=== PATIENT | female | born 1990 | race Caucasian/White ===

== ENCOUNTER → 2016-06-22 | Outpatient (CLI) | payer OTHER ==
[~2016-06-22] MED LIST: BIRTH CONTROL; CIPRO 500MG TA500 MG; CIPRO500 MG PO; CLONAZEPAM0.5 M1 PO; CYCLOBENZAPRINE10 M1 PO; DOXYCYCLINE 50M50 MG PO; IMPLANON68 MG ID; INTUNIV3 MG PO; LAMICTAL200 MG PO; MACRODANTIN100; NORCO 325 MG-51 TAB PO; PYRIDIUM 100MG100 MG PO; ZOFRAN 4MG T4 MG/TAB PO
== END ==
LOC: BHSO 09:06
DX: F41.1 Generalized anxiety disorder (principal)

== ENCOUNTER → 2016-06-29 | Outpatient (CLI) | payer OTHER | LOC: BHSO 09:02 | DX: F41.1 Generalized anxiety disorder (principal) ==

== ENCOUNTER → 2016-07-13 | Outpatient (CLI) | payer OTHER | LOC: BHSO 09:05 | DX: F43.10 Post-traumatic stress disorder, unspecified (principal) ==

== ENCOUNTER → 2016-07-20 | Outpatient (CLI) | payer OTHER | LOC: BHSO 10:02 | DX: F41.1 Generalized anxiety disorder (principal) ==

== ENCOUNTER 2018-01-16 23:58 | Emergency (ER) | payer OTHER ==
[~2018-01-16] VITALS: Ht 172.7 cm; Wt 95.5 kg
[2018-01-17 00:03] VITALS: TEMP 97.6
[2018-01-17 00:39] LABS: BASO # 0.1 (0.0-0.2); BASO % 0.5 % (0.0-2.0); EOS # 0.1 (0.0-0.7); EOS % 1.1 % (0-4.0); GRAN # 6.9 (1.4-6.5); GRAN % 59.7 % (42.2-75.2); HEMATOCRIT 40.1 % (37.0-47.0); HEMOGLOBIN 12.9 g/dl (12.5-16.0); LYMPH # 3.7 (1.2-3.4); LYMPH % 32.1 % (20.0-51.0); MEAN CELL VOLUME 85 fl (80.0-100.0); MEAN CORPUSCULAR HEMOGLOBIN 27 pg (27.0-31.0); MEAN CORPUSCULAR HGB CONC 32 g/dl (33.0-37.0); MEAN PLATELET VOLUME 10.5 fl (7.4-10.4); MONO # 0.7 (0.1-0.6); MONO % 6.3 % (1.7-9.3); PLATELET COUNT 311 K/mm3 (130-400); REDCELL DISTRIBUTION WIDTH-CV 13.5 % (11.5-14.5)
[2018-01-17 00:39] LABS: TRICYCLIC ANTIDEPRESS URINE NEGATIVE
[2018-01-17 00:50] LABS: ACETAMINOPHEN < 10 ug/mL (10-30); ALANINE AMINOTRANSFERASE 41 U/L (9-52); ALBUMIN 4.4 gm/dL (3.5-5.0); ALCOHOL(ethanol),MEDICAL < 10 mg/dL; ALKALINE PHOSPHATASE 76 U/L (50-136); ANION GAP 12 mmol/L (7-16); AST,SGOT 20 U/L (15-37); BILIRUBIN,TOTAL 0.2 mg/dL (0.0-1.0); BLOOD UREA NITROGEN 13 mg/dL (7-17); CALCIUM 9.5 mg/dL (8.4-10.2); CARBON DIOXIDE 27 mmol/L (22-30); CHLORIDE 99 mmol/L (98-107); CREATININE, serum 0.67 mg/dL (0.52-1.25); GLUCOSE 97 mg/dL (74-106); POTASSIUM 4.1 mmol/L (3.4-5.0); SALICYLATE < 1.0 mg/dL; SODIUM 138 mmol/L (137-145); TOTAL PROTEIN 7.9 gm/dL (6.4-8.2)
[2018-01-17 05:42] VITALS: BP 138/99; PULSE 91
== END 2018-01-17 05:42 | disposition home or self-care (01) ==
LOC: COL.ER 23:58
PROVIDERS: Emergency Medicine
DX: F32.9 Major depressive disorder, single episode, unspecified (principal); R45.851 Suicidal ideations; F12.90 Cannabis use, unspecified, uncomplicated

== ENCOUNTER 2018-10-06 10:25 | Emergency (ER) | payer OTHER ==
[~2018-10-06] VITALS: Ht 172.7 cm; Wt 113.6 kg
[2018-10-06 10:32] VITALS: TEMP 98.4
[2018-10-06] MEDS ORDERED: AMBIEN 5MG TABLE5 MG PO (10:51)
[2018-10-06 11:17] LABS: BASO # 0.1 (0.0-0.2); BASO % 0.5 % (0.0-2.0); EOS # 0.1 (0.0-0.7); EOS % 0.6 % (0-4.0); GRAN % 66.8 % (42.2-75.2); HEMATOCRIT 42.4 % (37.0-47.0); HEMOGLOBIN 13.8 g/dl (12.5-16.0); LYMPH # 2.7 (1.2-3.4); LYMPH % 25.5 % (20.0-51.0); MEAN CELL VOLUME 85 fl (80.0-100.0); MEAN CORPUSCULAR HEMOGLOBIN 28 pg (27.0-31.0); MEAN CORPUSCULAR HGB CONC 33 g/dl (33.0-37.0); MEAN PLATELET VOLUME 10.4 fl (7.4-10.4); MONO # 0.7 (0.1-0.6); MONO % 6.3 % (1.7-9.3); PLATELET COUNT 318 K/mm3 (130-400); RED BLOOD COUNT 4.99 M/mm3 (4.10-5.30); REDCELL DISTRIBUTION WIDTH-CV 12.8 % (11.5-14.5)
[2018-10-06 11:31] LABS: ALBUMIN 4.8 gm/dL (3.5-5.0); BILIRUBIN,TOTAL 0.6 mg/dL (0.0-1.0); C-REACTIVE PROTEIN 0.7 mg/dL (0.0-0.9); CALCIUM 10.2 mg/dL (8.4-10.2); CREATININE, serum 0.64 (0.52-1.25); TOTAL PROTEIN 8.6 gm/dL (6.4-8.2)
[2018-10-06 11:45] LABS: PROLACTIN 22.7 ng/mL (3.0-18.6)
[2018-10-06 16:46] VITALS: BP 123/81; PULSE 97
== END 2018-10-06 16:48 | disposition home or self-care (01) ==
LOC: COL.ER 10:25
PROVIDERS: Physician Assistant
DX: R47.01 Aphasia (principal); F41.9 Anxiety disorder, unspecified; F32.9 Major depressive disorder, single episode, unspecified
CPT/HCPCS: A9585; J2060

== ENCOUNTER → 2019-05-23 | Outpatient (CLI) | payer OTHER ==
[~2019-05-23] MED LIST changes: +AMBIEN 5MG TABLE5 MG PO
== END ==
LOC: COL.CARD 05-16 14:00
DX: R00.0 Tachycardia, unspecified (principal)

== ENCOUNTER → 2019-06-25 | Outpatient (CLI) | payer OTHER | LOC: COL.RAD 12:32 | DX: R10.11 Right upper quadrant pain (principal) | CPT/HCPCS: Q9967 ==

== ENCOUNTER 2019-07-22 00:03 | Emergency (ER) | payer OTHER ==
[~2019-07-22] VITALS: Ht 172.7 cm; Wt 104.5 kg
[2019-07-22 02:41] LABS: BASO # 0.1 (0.0-0.2); BASO % 0.5 % (0.0-2.0); EOS # 0.2 (0.0-0.7); EOS % 1.5 % (0-4.0); GRAN # 6.7 (1.4-6.5); GRAN % 60.8 % (42.2-75.2); HEMATOCRIT 44.2 % (37.0-47.0); HEMOGLOBIN 14.1 g/dl (12.5-16.0); LYMPH # 3.2 (1.2-3.4); LYMPH % 29.1 % (20.0-51.0); MEAN CELL VOLUME 83 fl (80.0-100.0); MEAN CORPUSCULAR HEMOGLOBIN 27 pg (27.0-31.0); MEAN CORPUSCULAR HGB CONC 32 g/dl (33.0-37.0); MEAN PLATELET VOLUME 10.6 fl (7.4-10.4); MONO # 0.9 (0.1-0.6); MONO % 7.7 % (1.7-9.3); PLATELET COUNT 323 K/mm3 (130-400); REDCELL DISTRIBUTION WIDTH-CV 14.2 % (11.5-14.5)
[2019-07-22 02:46] LABS: ALBUMIN 4.8 gm/dL (3.5-5.0); BILIRUBIN,TOTAL 0.2 mg/dL (0.0-1.0); CALCIUM 9.7 mg/dL (8.4-10.2); CREATININE, serum 0.81 (0.52-1.25); POTASSIUM 3.8 mmol/L (3.4-5.0); TOTAL PROTEIN 8.3 gm/dL (6.4-8.2)
[2019-07-22] MEDS ORDERED: PREDNISONE20 MG PO (04:09)
[2019-07-22] MEDS ORDERED: ZITHROMAX 250M250 MG PO (04:09)
[2019-07-22 04:21] VITALS: PULSE 95
[2019-07-22 04:35] VITALS: BP 147/97; TEMP 98.7
== END 2019-07-22 04:35 | disposition home or self-care (01) ==
LOC: COL.ER 00:03
PROVIDERS: Nurse Practitioner
DX: J20.9 Acute bronchitis, unspecified (principal); G43.909 Migraine, unspecified, not intractable, without status migrainosus; F41.9 Anxiety disorder, unspecified; Z87.891 Personal history of nicotine dependence
CPT/HCPCS: J7030; J7512